=== PATIENT | female | born 1950 | race Caucasian/White ===

== ENCOUNTER → 2017-12-22 | Outpatient (CLI) | payer OTHER | LOC: M.RAD 12-10 12:21 | DX: Z12.31 Encounter for screening mammogram for malignant neoplasm of breast (principal); Z78.0 Asymptomatic menopausal state ==

== ENCOUNTER → 2018-01-06 | Outpatient (CLI) | payer OTHER | LOC: M.RAD 12-30 15:40 | DX: R92.1 Mammographic calcification found on diagnostic imaging of breast (principal) ==

== ENCOUNTER → 2018-01-12 | Outpatient (CLI) | payer OTHER ==
--- NOTE | 2018-01-14 14:52 | S ---
[place] [address] SURGICAL PATH RPT PROCEDURE Name: DUSTY DOSS Room: [facility]#: [id number] Admission: 01/12/18 Date of : 54 Discharge: Report #: [id number] Path Case #: [id number] PATHOLOGY REPORT COLLECTION DATE: 01/12/2018 RECEIVED DATE: 01/12/2018 SUBMITTING PHYS: Dr. 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 (See comment) (CORAL:breana; 01/14/2018) COMMENT: Reviewed with Dr. Anton Gottlieb, who agrees with the diagnosis. PATHOLOGIST: Anibal Fitzpatrick M.D. REPORT ELECTRONICALLY SIGNED BY: Anibal Fitzpatrick M.D. DATE/TIME: 01/14/2018 14:52 * * * * * * * * * * * * GROSS PATHOLOGY: Received in formalin labeled "Dusty Doss, left breast stereotactic biopsy for calcifications," are multiple needle cores of yellow-arredondo fibrofatty tissue measuring 2.1 x 3.7 x 0.4 cm in aggregate dimensions. Also received is a plastic cassette containing multiple cores of yellow-arredondo fibrofatty tissue measuring 1.8 x 1.6 x 0.5 cm in aggregate dimensions. The tissue in the cassette is transferred to cassette A3, and the remaining tissue is submitted in its entirety in cassettes A1 and A2. The cold ischemic time is 2 minutes. The total formalin fixation time is 11 hours and 56 minutes. (TSD; 01/12/2018) CLINICAL HISTORY: Left breast stereotactic biopsy for calcifications INITIAL CPT CODE(S): A; 24614 Professional services performed by [facility] [place] [address] SURGICAL PATH RPT PROCEDURE Name: DUSTY DOSS Room: [facility]#: [id number] Admission: 01/12/18 Date of : 54 Discharge: Report #: [id number] Path Case #: [id number] [place] [id number] Technical services performed by [facility] at [address] [place] [address], [address], [place] [address]. [facility] [address] [place] [address] PHONE: [phone] DIRECTOR: Anton Gottlieb M.D. * * * END OF REPORT * * *
== END | disposition home or self-care (01) ==
LOC: M.RAD 10:31
DX: D24.2 Benign neoplasm of left breast (principal); N60.32 Fibrosclerosis of left breast; R92.0 Mammographic microcalcification found on diagnostic imaging of breast

== ENCOUNTER → 2018-07-29 | Outpatient (CLI) | payer OTHER | LOC: M.RAD 14:08 | DX: R92.8 Other abnormal and inconclusive findings on diagnostic imaging of breast (principal) ==

== ENCOUNTER → 2019-01-20 | Outpatient (CLI) | payer OTHER | LOC: M.RAD 14:50 | DX: R92.8 Other abnormal and inconclusive findings on diagnostic imaging of breast (principal); Z98.890 Other specified postprocedural states ==